=== PATIENT | male | born 1970 | race Caucasian/White ===

== ENCOUNTER 2017-05-23 10:59 | Emergency (ER) | payer OTHER ==
[~2017-05-23] VITALS: Ht 190.5 cm; Wt 73.5 kg
[2017-05-23] MEDS ORDERED: PREDNISONE5 M1 PO (13:54)
[2017-05-23] MEDS ORDERED: MOTRIN600 MG PO (13:56)
[2017-05-23 14:00] VITALS: BP 104/57
[2017-05-23] MEDS ORDERED: NEURONTIN300 MG PO (14:06)
== END 2017-05-23 14:00 | disposition home or self-care (01) ==
LOC: EME 10:59
DX: M25.552 Pain in left hip (principal); F17.200 Nicotine dependence, unspecified, uncomplicated
CPT/HCPCS: 73502; 85651; 86140; 99281; 99283; J1885